=== PATIENT | female | born 1990 | race Caucasian/White ===

== ENCOUNTER 2017-01-31 18:34 | Emergency (ER) | payer OTHER ==
[2017-01-31 18:51] VITALS: BP 125/67
[2017-01-31] MEDS ORDERED: Clindamycin CAP* 150 MG PO ONE (19:22)
[2017-01-31] MEDS ORDERED: Naproxen TAB* 250 MG PO ONE (19:22)
--- NOTE | 2017-01-31 19:28 | UC ---
Dental HPI - HPI Summary HPI Summary: 26 yo female with dental pain x 1-2 days no f/c no n/v right cheek feels swollen - History of Current Complaint Chief Complaint: UCDentalProblem Stated Complaint: LUMP IN MOUTH Time Seen by Provider: 01/31/17 19:04 Hx Obtained From: Patient Hx Last Menstrual Period: <1 WEEK AGO Onset/Duration: Gradual Onset Severity: Moderate Pain Intensity: 6 Pain Scale Used: 0-10 Numeric Aggravating: Heat, Cold, Chewing Alleviating: Nothing Related History: Previous Dental Care on Same Tooth, Swelling - Allergies/Home Medications Allergies/Adverse Reactions: Allergies Allergy/AdvReac Type Severity Reaction Status Date / Time Penicillins Allergy Severe Hives Verified 01/31/17 18:51 Levofloxacin [From Levaquin] Allergy yeast on Verified 01/31/17 18:51 tongue Home Medications: Home Medications Acetaminophen [Mapap] 1,000 mg PO PRN 01/31/17 [History] PMH/Surg Hx/FS Hx/Imm Hx Previously Healthy: Yes Endocrine History Of: Denies: Diabetes, Thyroid Disease Cardiovascular History Of: Denies: Cardiac Disorders, Hypertension Respiratory History Of: Reports: Asthma Denies: COPD GI/ History Of: Denies: Ulcer - Surgical History Surgical History: Yes Surgery Procedure, Year, and Place: - Family History Known Family History: Positive: Hypertension Negative: Cardiac Disease, Diabetes - Social History Alcohol Use: Occasionally Substance Use Type: None Smoking Status (MU): Current Every Day Smoker Type: Cigarettes Amount Used/How Often: 1/2 PPD Have You Smoked in the Last Year: Yes Household Exposure Type: Cigarettes - Immunization History Most Recent Influenza Vaccination: unknown Most Recent Tetanus Shot: 01/25/14 Most Recent Pneumonia Vaccination: none Review of Systems Constitutional: Negative Skin: Negative Eyes: Negative ENT: Dental Pain Respiratory: Negative Cardiovascular: Negative Gastrointestinal: Negative Genitourinary: Negative Motor: Negative Neurovascular: Negative Musculoskeletal: Negative Neurological: Negative Psychological: Negative All Other Systems Reviewed And Are Negative: Yes Physical Exam Triage Information Reviewed: Yes Appearance: Well-Appearing, No Pain Distress, Well-Nourished Vital Signs: Initial Vital Signs Temp 97.4 F 01/31/17 18:46 Pulse 58 01/31/17 18:46 Resp 16 01/31/17 18:46 BP 125/67 01/31/17 18:46 Pulse Ox 99 01/31/17 18:46 Vital Signs Reviewed: Yes Eyes: Positive: Conjunctiva Clear ENT: Positive: Hearing grossly normal, Pharynx normal. Negative: Nasal congestion, Nasal drainage, Tonsillar exudate, Trismus, Muffled/hoarse voice Dental: Positive: Gross Decay/Caries @, Abscess @ Neck: Positive: Nontender, No Lymphadenopathy Respiratory: Positive: Lungs clear, Normal breath sounds, No respiratory distress, No accessory muscle use Cardiovascular: Positive: RRR, No Murmur Musculoskeletal: Positive: ROM Intact, No Edema Neurological Exam: Normal Neurological: Positive: Alert Psychological Exam: Normal Skin Exam: Normal Dental Complaint Course/Dx - Differential Dx/Diagnosis Provider Diagnoses: dental abscess Discharge - Discharge Plan Condition: Stable Disposition: HOME Prescriptions: Clindamycin Cap(NF) [Cleocin 300 mg Cap(NF)] 300 mg PO QID #28 cap Naproxen [Naproxen 500 MG TABS] 500 mg PO BID PRN #30 tab PRN Reason: Pain Patient Education Materials: Dental Abscess (ED) Referrals: No Primary Care Phys,NOPCP [Medical Doctor] - Additional Instructions: to ER for new or worsening symptoms see dentist next week Images Dental: 1 - all rotted to gum line 2 - abscess
== END 2017-01-31 19:40 | disposition home or self-care (01) ==
LOC: UCEAST 18:34
DX: K04.7 Periapical abscess without sinus (principal); F17.210 Nicotine dependence, cigarettes, uncomplicated; Z88.1 Allergy status to other antibiotic agents; Z88.0 Allergy status to penicillin
CPT/HCPCS: 99212; A9270-GY; G0463

== ENCOUNTER 2018-07-27 14:46 | Emergency (ER) | payer OTHER ==
[2018-07-27 15:03] VITALS: BP 94/58
--- NOTE | 2018-07-27 15:20 | UC ---
Upper Extremity HPI - HPI Summary HPI Summary: Upper back/shoulder pain w/ movement after falling yesterday while playing w/ her son. Denies hearing any cracks or decr. function of upper extremities. REports feeling sore. of note . - History of Current Complaint Chief Complaint: UCBackPain Stated Complaint: RIB PAIN Time Seen by Provider: 07/27/18 14:49 Hx Obtained From: Patient Hx Last Menstrual Period: <1 WEEK AGO ?: Yes - APPROX 11 WKS Onset/Duration: Sudden Onset Pain Intensity: 5 Aggravating Factor(s): Movement Alleviating Factor(s): Nothing Associated Signs And Symptoms: Positive: Negative - Risk Factors DVT Risk Factors: , Smoking - Allergies/Home Medications Allergies/Adverse Reactions: Allergies Allergy/AdvReac Type Severity Reaction Status Date / Time Penicillins Allergy Severe Hives Verified 07/27/18 14:54 levofloxacin [From Levaquin] Allergy See Comment Verified 07/27/18 14:54 Home Medications: Home Medications 95/Iron Fum/Folic/Dha [ + Dha Combo Pack] 1 tab PO DAILY [History Confirmed 07/27/18] PMH/Surg Hx/FS Hx/Imm Hx - Additional Past Medical History Additional PMH: CURRENTLY - Surgical History Surgical History: Yes Surgery Procedure, Year, and Place: - Family History Known Family History: Positive: Hypertension Negative: Cardiac Disease, Diabetes - Social History Alcohol Use: None Substance Use Type: None Smoking Status (MU): Light Every Day Tobacco Smoker Type: Cigarettes Amount Used/How Often: 3-4 cigarettes per day Have You Smoked in the Last Year: Yes Household Exposure Type: Cigarettes - Immunization History Most Recent Influenza Vaccination: unknown Most Recent Tetanus Shot: 01/25/14 Most Recent Pneumonia Vaccination: none Review of Systems Constitutional: Negative Respiratory: Negative - DENIES SOB or DIFFICULTY BREATHING Cardiovascular: Negative Musculoskeletal: Arthralgia - +upper shoulder/back pain, Other: - denies calf pain/swelling All Other Systems Reviewed And Are Negative: Yes Physical Exam Triage Information Reviewed: Yes Appearance: Well-Appearing Vital Signs: Initial Vital Signs Temp 99.3 F 07/27/18 14:56 Pulse 87 07/27/18 14:56 Resp 20 07/27/18 14:56 BP 94/58 07/27/18 14:56 Pulse Ox 100 07/27/18 14:56 Vital Signs Reviewed: Yes Respiratory Exam: Normal Cardiovascular Exam: Normal Musculoskeletal: Positive: Strength Intact - UPPER EXTREMITY, mild pain w/ shoulder movement/resistance., ROM Intact - upper shoulder, neck. no pain w/ shoulder shrug/resistance., No Edema, Other: - no back/rib deformities, tenderness, crepitus Neurological: Positive: Alert Skin Exam: Normal - no bruising or redness on back/ribs/shoulders. Upper Extremity Course/Dx - Course Course Of Treatment: fall where she caught herself and experienced shoulder/back /rib soreness. exam unremarkable, no indication for imaging. not thought to be fractured. of note w/ resp. symptoms. - Differential Dx/Diagnosis Differential Diagnosis/HQI/PQRI: Arthritis, Contusion, Fracture (Closed), Strain , Sprain Provider Diagnoses: shoulder strain/rib pain Discharge - Sign-Out/Discharge Documenting (check all that apply): Patient Departure All imaging exams completed and their final reports reviewed: No Studies - Discharge Plan Condition: Good Disposition: HOME Patient Education Materials: Shoulder Sprain (ED) Referrals: No Primary Care Phys,NOPCP [Primary Care Provider] - Additional Instructions: If worsening please return to be re-evaluated - Billing Disposition and Condition Condition: GOOD Disposition: Home
== END 2018-07-27 15:25 | disposition home or self-care (01) ==
LOC: UCEAST 14:46
DX: O9A.211 Injury, poisoning and certain other consequences of external causes complicating pregnancy, first trimester (principal); S46.919A Strain of unspecified muscle, fascia and tendon at shoulder and upper arm level, unspecified arm, initial encounter; S29.011A Strain of muscle and tendon of front wall of thorax, initial encounter; O99.331 Smoking (tobacco) complicating pregnancy, first trimester; F17.210 Nicotine dependence, cigarettes, uncomplicated; Z3A.11 11 weeks gestation of pregnancy; Z88.0 Allergy status to penicillin; Z88.8 Allergy status to other drugs, medicaments and biological substances
CPT/HCPCS: 99211; G0463

== ENCOUNTER 2019-02-11 02:25 | Inpatient (IN) | payer OTHER ==
[2019-02-11] MEDS ORDERED: Nalbuphine* 10 MG/ML 1 ML VIAL IV PRN (04:16)
[2019-02-11] MEDS ORDERED: Promethazine INJ(RESTRICTED)* 25 MG/ML 1 ML VIAL IV PRN (04:16)
[2019-02-11 04:39] LABS: ABS Basophils 0.1 10^3/ul (0-0.2); ABS Eosinophils 0.1 10^3/ul (0-0.6); ABS Lymphocytes 3.1 10^3/ul (1.0-4.8); ABS Monocytes 1.2 10^3/ul (0-0.8); ABS Neutrophils 9.5 10^3/ul (1.5-7.7); Eosinophil % 0.4 %; Hematocrit 39 % (35-47); Hemoglobin 12.5 g/dL (12.0-16.0); Lymphocyte % 21.9 %; Mean Corpuscular HGB Conc 33 g/dL (31-36); Mean Corpuscular Hemoglobin 24 pg (27-31); Mean Corpuscular Volume 75 fL (80-97); Mean Platelet Volume 8.6 fL (7.4-10.4); Nucleated Red Blood Cells % 0.1; Platelet Count 221 10^3/uL (150-450); Red Blood Count 5.16 10^6 /uL (3.70-4.87); Red Cell Distribution Width 15 % (10.5-15); White Blood Count 13.9 10^3/uL (3.5-10.8)
[2019-02-11] MEDS ORDERED: Lactated Ringers 1000 ML Bag* 1,000 ML IV SCH ×3 (05:00→18:00)
[2019-02-11] MEDS ORDERED: Lactated Ringers 1000 ML Bag* 1,000 ML IV ONE (08:50)
[2019-02-11] MEDS ORDERED: Buffered Lidocaine 1% SYRIN* 1 ML/SYRINGE INTRADERM ONE (08:50)
--- NOTE | 2019-02-11 08:55 | HP ---
General Information - Reason for Visit contractions - General Information Maternal Age: 28 Grav: 2 Para: 1 SAB: 0 IEA: 0 Estimated Due Date: 02/13/19 Determined By: LMP Maternal Blood Type and Rh: O Positive - Results this Serology/RPR Result: Non-Reactive Rubella Result: Immune HBsAg Result: Negative HIV Result: Negative GBS Culture Result: Negative Past Medical History Delivery History: Hx C/Section Pertinent Past Medical History: See Records Pertinent Past Surgical History: See Records Pertinent Family History: See Records - Antepartal Records Antepartal Records: Reviewed, Complicated by: - [previous section Review of Systems Constitutional: Comfortable Gastrointestinal: No Nausea/Vomiting Genitourinary: No Bleeding, No Leaking Fluid Musculoskeletal: Contractions Neurological: No Headache Movement: Normal Exam Allergies/Adverse Reactions: Allergies Penicillins Allergy (Severe, Verified 02/11/19 03:17) Hives levofloxacin [From Levaquin] Allergy (Verified 02/11/19 03:17) See Comment thrush onion Allergy (Verified 02/11/19 07:09) Vomiting Lab Values - Entire Visit: Laboratory Tests 02/11/19 02/11/19 04:25 04:25 WBC 13.9 H RBC 5.16 H Hgb 12.5 Hct 39 MCV 75 L MCH 24 L MCHC 33 RDW 15 Plt Count 221 MPV 8.6 Neut % (Auto) 68.1 Lymph % (Auto) 21.9 [place] % (Auto) 8.8 Eos % (Auto) 0.4 Baso % (Auto) 0.8 Absolute Neuts (auto) 9.5 H Absolute Lymphs (auto) 3.1 Absolute Monos (auto) 1.2 H Absolute Eos (auto) 0.1 Absolute Basos (auto) 0.1 Absolute Nucleated RBC 0.0 Nucleated RBC % 0.1 Blood Type O Positive Antibody Screen Negative - Measurements Height: 5 ft 6 in Weight: 184 lb Weight in lbs: 184.817475 Body Mass Index (BMI): 29.7 Pre- Weight: 140 lb Weight Gained This : 44 lbs and 0 ozs - Exam Breast: Breast Exam Deferred Extremities: No Edema Heart: Normal Rhythm/Heart Sounds HEENT: No Significant Findings Lungs: Clear Bilaterally Reflexes: DTR 2+ Thyroid: No Thyromegaly - Abdominal Exam Abdomen Exam: Non-Tender Targeted Exam Findings Estimated Weight: 7 lbs Cervical Exam: 2cm Effacement: 90% Station: -1 Presenting Part: Breech Membrane Status: Intact EFM Findings - External Monitor Findings Baseline Heart Rate: 130 External Monitor Findings: Accelerations Present, Variability Moderate Contractions: Moderate, 45-90 Seconds Assessment/Plan - Obstetrical Risk Factors Obstetrical Risk Factors: Previous C/Section in Labor - Plan Plan: Admit - Anticipate Vaginal Delivery - discussed arom and epidural when uncomfortable/ cervix progressed since last exam
[2019-02-11] MEDS ORDERED: OBEPIDURAL* 250 ML EPIDURAL ONE (10:16)
[2019-02-11] MEDS ORDERED: Oxytocin in LR* 20 UNITS/1,000 ML BAG IVPB ONE (16:55)
[2019-02-11] MEDS ORDERED: Dibucaine 1% 28.35 GM TUBE ONE (17:23)
[2019-02-11] MEDS ORDERED: Witch Hazel PAD* JAR ONE (17:23)
[2019-02-11] MEDS ORDERED: Glycerin ADULT SUPP PR PRN (17:30)
[2019-02-11] MEDS ORDERED: Witch Hazel PAD* JAR TOPICAL PRN (17:30)
--- NOTE | 2019-02-11 17:41 | PROCNOTE ---
[facility]: Delivery Note - Delivery A Date of : 02/11/19 Time of : 17:15 [place] Sex: Female Score 1 Minute: 8 Score 5 Minutes: 9 Gestational Age in Weeks and Days at Delivery: 39 Weeks and 5 Days Delivery Method: Spontaneous Vaginal Labor: Spontaneous Did Patient attempt ?: Yes, Successful Amniotic Fluid: Meconium Estimated Blood Loss: 250 Anesthesia/Analgesia: CEI for Labor Anesthesia Comment: Dr. Archibald Delivered By: Catrachita Pacheco - Nursery Level of Nursery: Regular/Bedside - Perineum Perineal Injury: None/Intact Perineal Repair: None - Events Delivery Events of Note: Supplemental O2 to Mother - Additional Delivery Notes Additional Delivery Notes: in spontaneous labor progressed to complete and complete, pushing initiated with good maternal effort. FHR down to 95 during but good variability and baseline 115 during labor. crowned with slow controlled delivery of head OA to SALMA over intact perineum. Shoulders followed easily with next push, delivered to maternal abdomen. Spontaneous cry, HR >110, infant pink with tactile stimulation. Cord clamped x 2 and cut by FOB once pulsations ceased. Intact maxi placenta followed and fundus firm with massage. IV pitocin given post-delivery. Perineum and vulva inspected, small right periurethral laceration noted, hemostatic and no repair necessary. Mother and stable at time of note, infant weight pending to allow for skin to skin contact. EBL = 250 cc
[2019-02-11] MEDS ORDERED: Oxytocin in LR* 20 UNITS/1,000 ML BAG IVPB SCH (18:00)
[2019-02-11] MEDS ORDERED: Simethicone TAB* 80 MG TAB.CHEW PO SCH (18:00)
[2019-02-11] MEDS: Ibuprofen TAB* 600 MG PO PRN (18:27)
[2019-02-11] MEDS: Dibucaine 1% 28.35 GM TUBE PR PRN (20:07)
[2019-02-11] MEDS: Docusate CAP* 100 MG PO SCH (21:17)
[2019-02-11] MEDS: Acetaminophen TAB* 325 MG PO PRN (21:17)
--- NOTE | 2019-02-12 02:14 | PTEDU ---
Patient Name: STARR CLARK STARR CLARK selected video: Follow Me Mum: [employer] to Successful to view on 02/13/20 19 at 2:14:08 AM [id number]
[2019-02-12] MEDS: Ibuprofen TAB* 600 MG PO PRN ×2 (06:49→11:53)
[2019-02-12 07:38] LABS: Hematocrit 36 % (35-47); Hemoglobin 11.4 g/dL (12.0-16.0); Mean Corpuscular HGB Conc 32 g/dL (31-36); Mean Corpuscular Hemoglobin 24 pg (27-31); Mean Corpuscular Volume 76 fL (80-97); Mean Platelet Volume 9.1 fL (7.4-10.4); Platelet Count 180 10^3/uL (150-450); Red Blood Count 4.71 10^6 /uL (3.70-4.87); Red Cell Distribution Width 15 % (10.5-15); White Blood Count 18.5 10^3/uL (3.5-10.8)
[2019-02-12 07:41] LABS: ABS Basophils 0.1 10^3/ul (0-0.2); ABS Eosinophils 0.1 10^3/ul (0-0.6); ABS Lymphocytes 3.3 10^3/ul (1.0-4.8); ABS Monocytes 1.7 10^3/ul (0-0.8); ABS Neutrophils 13.4 10^3/ul (1.5-7.7); Eosinophil % 0.4 %; Lymphocyte % 17.8 %
[2019-02-12] MEDS: Acetaminophen TAB* 325 MG PO PRN ×2 (07:45→18:54)
[2019-02-12] MEDS: Docusate CAP* 100 MG PO SCH ×3 (07:45→20:47)
[2019-02-12] MEDS ORDERED: Ferrous Gluconate TAB* 324 MG TAB PO SCH (09:00)
[2019-02-12] MEDS: Dibucaine 1% 28.35 GM TUBE PR PRN (20:49)
[2019-02-13] MEDS: Ibuprofen TAB* 600 MG PO PRN ×2 (01:11→08:08)
[2019-02-13] MEDS: Acetaminophen TAB* 325 MG PO PRN ×2 (01:11→11:47)
[2019-02-13] MEDS: Docusate CAP* 100 MG PO SCH (08:08)
[2019-02-13 08:14] VITALS: BP 123/76
== END 2019-02-13 12:50 | disposition home or self-care (01) | DRG 560 ==
LOC: MCHOBOUT 02:25 → MCHOB 08:49
PROVIDERS: ADMIT Obstetrics & Gynecology; ATTEND Obstetrics & Gynecology
PROC: 10E0XZZ Delivery of Products of Conception, External Approach (ICD-10-PCS; principal; 2019-02-11)
PROC: 10907ZC Drainage of Amniotic Fluid, Therapeutic from Products of Conception, Via Natural or Artificial Opening (ICD-10-PCS; 2019-02-11)
PROC: 4A1HXCZ Monitoring of Products of Conception, Cardiac Rate, External Approach (ICD-10-PCS; 2019-02-11)
DX: O34.211 Maternal care for low transverse scar from previous cesarean delivery (principal); O98.52 Other viral diseases complicating childbirth; Z37.0 Single live birth; O99.334 Smoking (tobacco) complicating childbirth; F17.210 Nicotine dependence, cigarettes, uncomplicated; B00.9 Herpesviral infection, unspecified; O77.0 Labor and delivery complicated by meconium in amniotic fluid; O71.82 Other specified trauma to perineum and vulva; Z3A.39 39 weeks gestation of pregnancy; Z88.1 Allergy status to other antibiotic agents; Z88.0 Allergy status to penicillin; Z91.018 Allergy to other foods
CPT/HCPCS: 36415; 85025; 86850; 86900; 86901; A9270-GY; J2300; J2550